=== PATIENT | male | born 1945 | race Asian ===

== ENCOUNTER → 2019-02-08 | Outpatient (CLI) | payer MEDICARE, OTHER ==
[~2019-02-08] MED LIST: CLOP75TA3 PO; EZET1TAB3 PO; LISI10TA PO; METO-558 PO; PIOG15TA6 PO
== END | disposition home or self-care (01) ==
LOC: RADPV 10:54
PROVIDERS: ATTEND Internal Medicine
DX: M47.812 Spondylosis without myelopathy or radiculopathy, cervical region (principal); M19.012 Primary osteoarthritis, left shoulder; M75.32 Calcific tendinitis of left shoulder; M19.011 Primary osteoarthritis, right shoulder; M47.816 Spondylosis without myelopathy or radiculopathy, lumbar region; E11.69 Type 2 diabetes mellitus with other specified complication
CPT/HCPCS: 72040; 72100